=== PATIENT | female | born 1995 | race Hispanic/Latino ===

== ENCOUNTER 2022-03-13 15:39 | Observation (INO) | payer BC, SELFPAY ==
--- NOTE | 2022-03-13 15:39 | OBADM ---
This patient, Angela Mcdaniel, admitted to the OB room OB Post 116 for observation. Patient/family oriented to hospital policies and general routines including ID bracelet, bed and alarms, visiting hours, pain management, procedures, bathroom and other care routines, personal items, smoking policy, room service/diet, and visiting hours. Patient/Family are encouraged to report perceived risks to care and to ask questions if they do not understand what they are told or what they should do.
[2022-03-13 15:54] VITALS: BP 109/64; PULSE 105
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
[2022-03-13 17:32] VITALS: BMI 31.7
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
== END 2022-03-13 17:56 | disposition home or self-care (01) ==
PROVIDERS: Admitting Provider Student in an Organized Health Care Education/Training Program; Visit Provider Student in an Organized Health Care Education/Training Program
DX: Z04.3 Encounter for examination and observation following other accident (principal); O26.893 Other specified pregnancy related conditions, third trimester; Z3A.29 29 weeks gestation of pregnancy
CPT/HCPCS: 59025; G0378; G0379

== ENCOUNTER 2022-05-13 21:14 | Observation (INO) | payer BC, SELFPAY ==
[2022-05-13] VITALS (17 sets, daily range): BP systolic 98–130; BP diastolic 47–66; PULSE 126–155; RESP 10–24; TEMP 37.6; O2SAT 97–99
[2022-05-13] MEDS: SODIUM CHLORIDE 0.9% IV 1,000 ML 999 ML IV CONT (22:28)
[2022-05-13 22:53] LABS: Alanine Aminotransferase 15 U/L (6-35); Albumin Level 3.3 g/dL (3.5-5.1); Alkaline Phosphatase 191 U/L (38-126); Anion Gap 9 mmol/L (8-16); Aspartate Amino Transferase 36 U/L (14-36); Bilirubin,Total 0.8 mg/dL (0.2-1.3); Blood Urea Nitrogen 10 mg/dL (7-17); Calcium 8.3 mg/dL (8.4-10.2); Carbon Dioxide 18 mmol/L (22-30); Chloride 105 mmol/L (98-107); Estimated CRCL calculation 138 ml/min; Estimated Glomerular Filt Rate > 60; Glucose 107 mg/dL (65-110); Potassium 3.6 mmol/L (3.4-5.0); Sodium 132 mmol/L (137-145)
[2022-05-13 23:08] LABS: SARS-CoV-2 RNA PCR Positive
[2022-05-14] VITALS (38 sets, daily range): BP systolic 90–110; BP diastolic 46–66; PULSE 76–134; RESP 14–25; TEMP 36.4–37.1; O2SAT 97–100; BMI 33.7
[2022-05-14 00:07] LABS: Basophils Absolute Auto 0.1 K/mm3 (0.0-0.1); Basophils Percent Auto 0.5 % (0.2-1.2); Eosinophils Percent Auto 0.2 % (0-4.4); Hematocrit 21.9 % (37.0-47.0); Immature Granulocyte Absolute 0.47 K/mm3 (0.00-0.031); Immature Granulocyte Percent A 4.2 % (0-0.5); Lymphocytes Percent Auto 7.1 % (18.3-44.2); Mean Corpuscular HGB Conc 27.9 g/dl (32-36); Mean Corpuscular Hemoglobin 19.1 pg (26-34); Mean Corpuscular Volume 68.7 fl (80-100); Mean Platelet Volume 9.6 fl (7.4-10.4); Monocytes Absolute Auto 1.4 K/mm3 (0.1-0.6); Monocytes Percent Auto 12.5 % (2.6-8.5); Neutrophils Absolute Auto 8.5 K/mm3 (1.3-6.7); Neutrophils Percent Auto 75.5 % (45.5-73.1); Nucleated Red Blood Cells Absolute Auto 0.5 K/mm3 (0.0-0.012); Platelet Count Result 221 k/mm3 (150-375); Red Blood Count 3.19 M/mm3 (4.2-5.4); Red Cell Distribution Width 20.9 % (11.5-14.5); White Blood Count 11.2 K/mm3 (4.5-10.0)
[2022-05-14 00:11] LABS: Hemoglobin 6.1 g/dL (12.0-15.0)
[2022-05-14 00:12] LABS: Platelet Estimate Adequate (Adequate)
[2022-05-14 00:13] LABS: Hypochromasia 2+ (NORMAL); Microcytosis 2+ (NORMAL)
[2022-05-14 00:14] LABS: Ovalocytes 1+ (NORMAL)
--- NOTE | 2022-05-14 00:32 | ED.FEVER ---
HPI - Fever General Chief Complaint: Fever Stated Complaint: fever 104, 38 weeks Time Seen by Provider: 05/13/22 22:06 History of Present Illness HPI Narrative: Patient is a 27-year-old female who presents ER with fever. Patient reports her daughter was sick recently with some diarrhea. Patient developed fever yesterday and took a home COVID test that was negative. Patient is currently [address] Orlando Ritter. She is feeling baby move. She is eating and drinking without issue. She has some mild runny nose but no sore throat or productive cough. No dyspnea. No chest pain or chest pressure. No abdominal discomfort. She is without diarrhea. No leakage of fluid from the vagina or vaginal bleeding. Related Data Allergies Allergy/AdvReac Type Severity Reaction Status Date / Time No Known Allergies Allergy Verified 04/28/22 14:42 Review of Systems Review of Systems: All systems reviewed & are unremarkable except as noted in HPI and below Constitutional: Constitutional: Reports chills, Reports fatigue and Reports fever(s) ENT: Reports nasal congestion and Denies sore throat Cardiovascular: Cardiovascular: Denies chest pain, Reports rapid heart rate and Denies radiating jaw, neck or arm pain Respiratory: Respiratory: Denies cough, Denies dyspnea and Denies wheezing Gastrointestinal: Gastrointestinal: Denies abdominal pain, Denies diarrhea, Denies nausea and Denies vomiting Genitourinary: Genitourinary: Denies abnormal vaginal bleeding, Denies dysuria and Denies flank pain Musculoskeletal: Musculoskeletal: Reports myalgias, Denies arthralgias and Denies joint swelling PMFSH Past Medical History Medical History (Updated 05/14/22 @ 02:56 by Josué Castellanos MD) Iron deficiency anemia Surgical History Surgical History (Updated 05/14/22 @ 02:56 by Josué Castellanos MD) No pertinent past surgical history Family History Family History (Updated 04/28/22 @ 14:43 by Hector Piper RN) Other No pertinent family history Social History Social History Substance use: never Spiritual care concerns: No Exam Narrative: GENERAL: Well-appearing, well-nourished, and in no acute distress. HEAD: Normocephalic, atraumatic. ENT: Mucous membranes moist. NECK: Supple. CHEST: Clear to auscultation. No respiratory distress. HEART: Tachycardic and regular. Normal peripheral pulses. ABDOMEN: Soft, nontender, nondistended. EXTREMITIES: Normal range of motion. No edema. SKIN: Warm, dry, no rash. NEURO: Alert and oriented x3. PSYCH: Normal mood and affect. Course Vital Signs Vital signs: Vital Signs Temperature 99.7 F H 05/13/22 21:39 Pulse Rate 155 H 05/13/22 21:39 Respiratory Rate 18 05/13/22 21:39 Blood Pressure 130/59 L 05/13/22 21:39 Pulse Oximetry 98 05/13/22 21:39 Oxygen Delivery Room Air 05/13/22 21:39 Temperature 99.7 F H 05/13/22 21:39 Pulse Rate 155 H 05/13/22 21:39 Respiratory Rate 18 05/13/22 21:39 Blood Pressure 130/59 L 05/13/22 21:39 Pulse Oximetry 98 05/13/22 21:39 Oxygen Delivery Room Air 05/13/22 21:39 MDM - Fever Lab Data Result diagrams: 05/13/22 23:51 05/13/22 22:24 Labs: Lab Results 05/13/22 05/13/22 05/13/22 Range/Units 22:24 22:24 23:51 WBC 11.2 H (4.5-10.0) K/mm3 RBC 3.19 L (4.2-5.4) M/mm3 Hgb 6.1 L* (12.0-15.0) g/dL Hct 21.9 L (37.0-47.0) % MCV 68.7 L (80-100) fl MCH 19.1 L (26-34) pg MCHC 27.9 L (32-36) g/dl RDW 20.9 H (11.5-14.5) % Plt Count 221 (150-375) k/mm3 MPV 9.6 (7.4-10.4) fl Immature Gran % (Auto) 4.2 H (0-0.5) % Neut % (Auto) 75.5 H (45.5-73.1) % Lymph % (Auto) 7.1 L (18.3-44.2) % [place] % (Auto) 12.5 H (2.6-8.5) % Eos % (Auto) 0.2 (0-4.4) % Baso % (Auto) 0.5 (0.2-1.2) % Lymph # (Auto) 0.80 L (0.9-3.2) K/mm3 [place] # (Auto) 1.4 H (0.1-0.6) K/mm3 Eos # (Auto) 0.
[2022-05-14 01:01] LABS: Appearance Urine Clear (Clear); Bilirubin Urine Negative (Negative); Blood Urine Negative (Negative); Color Urine Yellow (Yellow); Glucose Urine UA Negative (Negative); Ketones Urine Negative (Negative); Leukocyte Esterase Ur Trace LEU/UL (Negative); Nitrate Urine Negative (Negative); Protein Urine Negative (Negative); Urobilinogen Urine 0.2 mg/dL (<2.0)
[2022-05-14 01:04] LABS: Add Urine Microscopic? YES; Mucus Urine Rare /lpf; RBC Urine 0-2 /hpf (0-2); Squamous Epithelial Cell Urine Few /hpf (Few)
--- NOTE | 2022-05-14 04:18 | PC.NURSE ---
This patient, Angela Mcdaniel, was admitted to [facility] Surg Room 300-01. Patient/family oriented to hospital policies and general routines including ID bracelet, bed and alarms, visiting hours, pain management, procedures, bathroom and other care routines, personal items, smoking policy, room service/diet, and visiting hours. Information on how to activate the Rapid Response Team has been discussed. Patient/Family are encouraged to report perceived risks to care and to ask questions if they do not understand what they are told or what they should do.
[2022-05-14] MEDS: SODIUM CHLORIDE 0.9% IV 250 ML 30 ML IV CONT (05:17)
--- NOTE | 2022-05-14 06:24 | PM.IMHP ---
H&P: HPI History of Present Illness Date/Time: 05/14/22 06:24 Chief Complaint: Fever with 38 week Narrative: this is a 27-year-old female at 38 weeks gestation with fever. She is positive for COVID on admission and a noted be markedly anemic at 6.1. She was noted to be anemic at her 28 week visit and was prescribed iron for which she has not taken. She is admitted for observation and transfusion. She will also be prescribed oral viral treatment. Which she will be able to take at home PMFSH Past Medical History Medical History Iron deficiency anemia Surgical History Surgical History No pertinent past surgical history Family History Family History Other No pertinent family history Social History Social History Smoking status: Never smoker Alcohol intake: unknown Substance use: never Substance use type: does not use Spiritual care concerns: No Meds Home Medications and Allergies Home Medications Medication Instructions Recorded Confirmed Type nirmatrelvir 300 mg (150 mg x See Rx Instructions PO .COMPLEX 05/14/22 Rx 2)-ritonavir 100 mg tablet (EUA) #30 tabs (Paxlovid 300 mg () Allergies Allergy/AdvReac Type Severity Reaction Status Date / Time No Known Allergies Allergy Verified 04/28/22 14:42 Vital Signs Vital Signs - 24 hr 05/13/22 21:39 05/13/22 22:07 05/13/22 22:09 Temperature 99.7 F H Pulse Rate 155 H Respiratory Rate 18 Blood Pressure 130/59 L 101/57 L Pulse Oximetry 98 98 99 Oxygen Delivery Room Air 05/13/22 22:15 05/13/22 22:16 05/13/22 22:30 Temperature Pulse Rate 138 H 144 H 145 H Respiratory Rate 13 10 L 20 Blood Pressure 98/55 L Pulse Oximetry 97 99 98 Oxygen Delivery 05/13/22 22:31 05/13/22 22:45 05/13/22 22:46 Temperature Pulse Rate 143 H 130 H 131 H Respiratory Rate 18 20 20 Blood Pressure 104/61 114/66 Pulse Oximetry 98 98 98 Oxygen Delivery 05/13/22 23:00 05/13/22 23:01 05/13/22 23:15 Temperature Pulse Rate 129 H 130 H 126 H Respiratory Rate 19 20 24 H Blood Pressure 107/59 L Pulse Oximetry 99 99 98 Oxygen Delivery 05/13/22 23:16 05/13/22 23:30 05/13/22 23:31 Temperature Pulse Rate 126 H 132 H 128 H Respiratory Rate 16 19 20 Blood Pressure 100/65 98/61 L Pulse Oximetry 99 98 99 Oxygen Delivery 05/13/22 23:45 05/13/22 23:46 05/14/22 00:00 Temperature Pulse Rate 126 H 128 H 134 H Respiratory Rate 21 H 23 H 21 H Blood Pressure 99/47 L Pulse Oximetry 99 99 97 Oxygen Delivery 05/14/22 00:01 05/14/22 00:42 05/14/22 00:45 Temperature Pulse Rate 128 H 129 H 130 H Respiratory Rate 16 20 18 Blood Pressure 98/48 L Pulse Oximetry 99 99 98 Oxygen Delivery 05/14/22 01:00 05/14/22 01:35 05/14/22 01:45 Temperature Pulse Rate 124 H 129 H 132 H Respiratory Rate 17 23 H 25 H Blood Pressure Pulse Oximetry 98 99 99 Oxygen Delivery 05/14/22 02:00 05/14/22 02:15 05/14/22 02:30 Temperature Pulse Rate 129 H 126 H 126 H Respiratory Rate 19 20 18 Blood Pressure Pulse Oximetry 98 98 100 Oxygen Delivery 05/14/22 03:49 05/14/22 04:14 05/14/22 04:00 Temperature 98.7 F 98.6 F Pulse Rate 76 123 H Respiratory Rate 18 16 Blood Pressure 103/57 L 109/57 L 110/60 Pulse Oximetry 98 98 Oxygen Delivery 05/14/22 04:48 05/14/22 05:08 05/14/22 05:22 Temperature 98.6 F 98.1 F Pulse Rate 76 122 H Respiratory Rate 18 16 Blood Pressure 109/57 L 103/52 L Pulse Oximetry 98 100 Oxygen Delivery Room Air 05/14/22 06:08 Temperature 98.0 F Pulse Rate 125 H Respiratory Rate 18 Blood Pressure 97/53 L Pulse Oximetry 97 Oxygen Delivery H&P: Results Labs Labs: Short CBC
--- NOTE | 2022-05-14 08:07 | PC.NURSE ---
This patient, Angela Mcdaniel, was transferred to [OB] on 05/14/22 at 0815. Personal belongings sent with patient. Report given to [adal]. Appropriate documentation sent with patient.
--- NOTE | 2022-05-14 11:23 | PC.NURSE ---
Spoke with Dr. Orlando Ritter about pt 2nd unit of blood is complete. He gave discharge orders. States pt with get a repeat Hemocrat and Hemoglobin Wednesday at her Regularly scheduled appointment. He reports she should fill her prescription written by ER doctor for COVID. He reports if she has any questions or concerns he can come down and talk with her or she can call. Plan of care discussedwith pt. She had no concerns and felt okay to be discharges and would fill prescription, call with a [place] questions, and follow up Wednesday at her appointment.
--- NOTE | 2022-05-14 11:57 | PM.DS ---
DS: Admitting Diagnosis Discharge Date 05/14/22 Admitting Diagnosis Term /COVID positive/anemia DS: Discharge Diagnosis Discharge Diagnosis (1) Term : Code(s): Z34.90 - Encounter for supervision of normal , unspecified, unspecified trimester Status: Acute (2) COVID: Code(s): U07.1 - COVID-19 Status: Acute (3) Anemia: Code(s): D64.9 - Anemia, unspecified Status: Acute DS: Summary Hospital Course Reason for hospitalization: Fever in Hospital Course: This 27-year-old mal tip was admitted at 38 weeks gestation with fever. She was positive for COVID on admission and noted to be anemic at 6.1. She received 2units of blood and was feeling much better. She is discharged home to take Paxil did twice a day for the next 5 years. She has an ultrasound and H&H scheduled for Wednesday. COVID precautions were given. Time Spent with Patient Time attestation: Total time spent providing and/or coordinating discharge services: DS: Data Data Completed and Pending Labs on day of discharge: Labs from last 24 hours 05/14/22 05/14/22 05/13/22 00:43 00:43 23:51 WBC 11.2 H RBC 3.19 L Hgb 6.1 L* Hct 21.9 L MCV 68.7 L MCH 19.1 L MCHC 27.9 L RDW 20.9 H Plt Count 221 MPV 9.6 Immature Gran % (Auto) 4.2 H Neut % (Auto) 75.5 H Lymph % (Auto) 7.1 L [place] % (Auto) 12.5 H Eos % (Auto) 0.2 Baso % (Auto) 0.5 Lymph # (Auto) 0.80 L [place] # (Auto) 1.4 H Eos # (Auto) 0.0 Baso # (Auto) 0.1 Abs Immat Gran (auto) 0.47 H Absolute Neuts (auto) 8.5 H Absolute Nucleated RBC 0.5 H Nucleated RBC % 4.0 H Platelet Estimate Adequate Hypochromasia 2+ Microcytosis 2+ Ovalocytes 1+ Sodium Potassium Chloride Carbon Dioxide Anion Gap BUN Creatinine Estim Creat Clear Calc Estimated GFR Glucose Calcium Total Bilirubin AST ALT Alkaline Phosphatase Total Protein Albumin Urine Color Yellow Urine Appearance Clear Urine pH 6.0 Ur Specific [place] 1.010 Urine Protein Negative Urine Glucose (UA) Negative Urine Ketones Negative Ur Blood (Man) Negative Urine Nitrate Negative Urine Bilirubin Negative Urine Urobilinogen 0.2 Leukocyte Esterase Rfl Trace H Urine RBC 0-2 Urine WBC 4-6 H Ur Squamous Epith Cells Few Urine Mucus Rare SARS-CoV-2 RNA (RT-PCR) Blood Type O Positive Antibody Screen Negative Crossmatch See Detail 05/13/22 05/13/22 22:24 22:24 WBC RBC Hgb Hct MCV MCH MCHC RDW Plt Count MPV Immature Gran % (Auto) Neut % (Auto) Lymph % (Auto) [place] % (Auto) Eos % (Auto) Baso % (Auto) Lymph # (Auto) [place] # (Auto) Eos # (Auto) Baso # (Auto) Abs Immat Gran (auto) Absolute Neuts (auto) Absolute Nucleated RBC Nucleated RBC % Platelet Estimate Hypochromasia Microcytosis Ovalocytes Sodium 132 L Potassium 3.6 Chloride 105 Carbon Dioxide 18 L Anion Gap 9 BUN 10 Creatinine 0.60 L Estim Creat Clear Calc 138 Estimated GFR > 60 Glucose 107 Calcium 8.3 L Total Bilirubin 0.8 AST 36 ALT 15 Alkaline Phosphatase 191 H Total Protein 6.0 L Albumin 3.3 L Urine Color Urine Appearance Urine pH Ur Specific [place] Urine Protein Urine Glucose (UA) Urine Ketones Ur Blood (Man) Urine Nitrate Urine Bilirubin Urine Urobilinogen Leukocyte Esterase Rfl Urine RBC Urine WBC Ur Squamous Epith Cells Urine Mucus SARS-CoV-2 RNA (RT-PCR) Positive A Blood Type Antibody Screen Crossmatch Discharge Plan Discharge Attending physician on discharge: Kenney Barron Discharging Clinician: Kenney Barron Anticipated Discharge Date/Time: 05/14/22 11:35 Patient Disposition: Home, Self-Care Activity: as tolerated Diet:
== END 2022-05-14 11:44 | disposition home or self-care (01) ==
LOC: ANHED 05-14 00:32 → ANH3MEDSUR 05-14 04:07 → ANHOBPP 05-14 08:25
PROVIDERS: Admitting Provider Obstetrics & Gynecology; Emergency Provider Emergency Medicine; PCP Obstetrics & Gynecology; Visit Provider Obstetrics & Gynecology
DX: O98.513 Other viral diseases complicating pregnancy, third trimester (principal); U07.1 COVID-19; O99.013 Anemia complicating pregnancy, third trimester; D64.9 Anemia, unspecified; Z3A.38 38 weeks gestation of pregnancy
CPT/HCPCS: 36415; 36430; 59025; 80053; 81001; 85025; 86850; 86900; 86901; 86920; 96360; 99285; C9803; G0378; J7030; J7050; P9016; U0003; U0005

== ENCOUNTER 2022-05-19 21:45 | Inpatient (IN) | payer BC, SELFPAY ==
[2022-05-19] VITALS (31 sets, daily range): BP systolic 100–138; BP diastolic 55–102; PULSE 28–141; RESP 18; TEMP 36.5–36.6; O2SAT 80–100; BMI 33.3
[2022-05-19] MEDS: LACTATED RINGERS 1,000 ML 999 ML IV CONT (22:05)
[2022-05-19 22:06] LABS: Basophils Percent Auto 0.3 % (0.2-1.2); Eosinophils Absolute Auto 0.1 K/mm3 (0-0.3); Eosinophils Percent Auto 0.5 % (0-4.4); Hematocrit 36.4 % (37.0-47.0); Hemoglobin 10.1 g/dL (12.0-15.0); Immature Granulocyte Absolute 0.08 K/mm3 (0.00-0.031); Immature Granulocyte Percent A 0.7 % (0-0.5); Immature Platelet Fraction Pct 7.7 % (0.9-11.2); Lymphocytes Absolute Auto 4.69 K/mm3 (0.9-3.2); Lymphocytes Percent Auto 40.9 % (18.3-44.2); Mean Corpuscular HGB Conc 27.7 g/dl (32-36); Mean Corpuscular Hemoglobin 20.4 pg (26-34); Mean Corpuscular Volume 73.5 fl (80-100); Monocytes Absolute Auto 0.6 K/mm3 (0.1-0.6); Monocytes Percent Auto 5.1 % (2.6-8.5); Neutrophils Percent Auto 52.5 % (45.5-73.1); Nucleated Red Blood Cells Absolute Auto 0.1 K/mm3 (0.0-0.012); Platelet Count Result 278 k/mm3 (150-375); Red Blood Count 4.95 M/mm3 (4.2-5.4); Red Cell Distribution Width 23.9 % (11.5-14.5); White Blood Count 11.5 K/mm3 (4.5-10.0)
[2022-05-19 22:12] LABS: Anisocytosis 1+ (NORMAL); Hypochromasia 1+ (NORMAL); Microcytosis 1+ (NORMAL); Ovalocytes 1+ (NORMAL); Platelet Estimate Adequate (Adequate)
--- NOTE | 2022-05-19 22:13 | WPDANESEPP ---
Anes - Eval Pre Procedure Procedure: labor epidural Date/Time: 05/19/22 22:13 Pre Op Diagnosis: Labor Patient Data Age: 27 Gender: F Height: Weight: Last Vital Signs Pulse Ox 96 05/19/22 22:09 Allergies Allergy/AdvReac Type Severity Reaction Status Date / Time No Known Allergies Allergy Verified 04/28/22 14:42 Home Medications Medication Instructions Recorded Confirmed Type nirmatrelvir 300 mg (150 mg x See Rx Instructions PO .COMPLEX 05/14/22 Rx 2)-ritonavir 100 mg tablet (EUA) #30 tabs (Paxlovid 300 mg () Laboratory Tests 05/19/22 05/19/22 21:59 21:59 WBC 11.5 K/mm3 H K/mm3 (4.5-10.0) RBC 4.95 M/mm3 M/mm3 (4.2-5.4) Hgb 10.1 g/dL L D g/dL (12.0-15.0) Hct 36.4 % L % (37.0-47.0) MCV 73.5 fl L D fl (80-100) MCH 20.4 pg L D pg (26-34) MCHC 27.7 g/dl L g/dl (32-36) RDW 23.9 % H % (11.5-14.5) Plt Count 278 k/mm3 k/mm3 (150-375) MPV 10.0 fl fl (7.4-10.4) Immature Gran % (Auto) 0.7 % H % (0-0.5) Neut % (Auto) 52.5 % % (45.5-73.1) Lymph % (Auto) 40.9 % % (18.3-44.2) [place] % (Auto) 5.1 % % (2.6-8.5) Eos % (Auto) 0.5 % % (0-4.4) Baso % (Auto) 0.3 % % (0.2-1.2) Lymph # (Auto) 4.69 K/mm3 H K/mm3 (0.9-3.2) [place] # (Auto) 0.6 K/mm3 K/mm3 (0.1-0.6) Eos # (Auto) 0.1 K/mm3 K/mm3 (0-0.3) Baso # (Auto) 0.0 K/mm3 K/mm3 (0.0-0.1) Abs Immat Gran (auto) 0.08 K/mm3 H K/mm3 (0.00-0.031) Absolute Neuts (auto) 6.0 K/mm3 K/mm3 (1.3-6.7) Absolute Nucleated RBC 0.1 K/mm3 H K/mm3 (0.0-0.012) Nucleated RBC % 1.0 % H % (0.0-0.2) Platelet Estimate Adequate (Adequate) % Immature Plt Fraction 7.7 % % (0.9-11.2) Hypochromasia 1+ (NORMAL) Anisocytosis 1+ (NORMAL) Microcytosis 1+ (NORMAL) Ovalocytes 1+ (NORMAL) RPR Pending Patient hx anesthesia problems: none Family hx anesthesia problems: none Results Review: All pre-operative results and documents have been reviewed as part of the pre-operative evaluation. [facility] Past Medical History Medical History Iron deficiency anemia Surgical History Surgical History No pertinent past surgical history Family History Family History Other No pertinent family history Social History Social History Smoking status: Never smoker Alcohol intake: unknown Substance use: never Substance use type: does not use Spiritual care concerns: No Exam Day of Procedure 05/19/22 22:13 Patient weight: obese Heart: regular rate and rhythm Lungs: clear to auscultation Airway: Mallampati scale Neurological: alert and oriented
[2022-05-19] MEDS: OXYTOCIN 30 UNITS/NS 500 ML 30 UNITS/500 ML BAG 999 UNITS IV CONT (23:00)
--- NOTE | 2022-05-19 23:20 | WPDOBADMIT ---
Obstetrics - Admit Note Admission Note: record reviewed. Additions to the history and/or subsequent changes in the physical findings follow. 27 y/o at 39 1/7 weeks whose contractions began at 1830 at home. Cervix was 8 cm dilated at time of admission to hospital. GBS neg. Recent COVID-19 infection. Also recent transfusion for profound anemia, etiology unclear. Now comfortable with epdural. AVSS NST reactive TOCO: contractions every 2-4 min ABD soft, nontender, gravid, vertex EXT nontender Cervix C/+1. AROM with clear fluid. A: IUP at term with labor. P: Begin pushing.
--- NOTE | 2022-05-19 23:22 | PM.OBPRVD ---
OB - Delivery Note Procedure Delivery date: 05/19/22 Procedure: Induction method: None Delivery augmentation: Rupture of Membranes Delivery monitor: External FHT and External Uterine Route of delivery: Laceration Description: Periurethral (right) and Perineal - 2nd Degree Delivery repair: vicryl (3-0) Specimen: Yes (cord blood, placenta) Quantitative Blood Loss (ml): 380 Anesthesia type: Epidural Disposition: PACU Complications: None Narrative: 27 y/o at 39 1/7 weeks gestation who presented to the hospital with contractions. Labor was diagnosed. She received an epidural. Amniotomy was performed with return of clear fluid. Her cervix dilated completely. She pushed with good effort and delivered the 's head to the perineum, followed by the body. The nose and mouth were bulb suctioned. After a delay, the cord was clamped and cut. The was handed off the field. Cord blood was collected. The placenta delivered spontaneously and was grossly normal in appearance. The usual 3 vessel cord was noted. A second degree midline perineal laceration was sustained. This was reapproximated using 3 0 Vicryl in the usual layered fashion. A right-sided periurethral laceration was reapproximated using two figure-of eight sutures of the same material. Excellent hemostasis resulted as did excellent reapproximation of the normal anatomy. Needle and instrument counts were correct. The patient was taken to recovery room in stable condition. The infant went to the nursery in stable condition. I was present and scrubbed for the entire delivery. [place] Baby Date of : 05/19/22 Time of : 22:55 Weeks of gestation at delivery: 39 Infant gender: Male Weight (pounds): 9 Weight (ounces): 5 presentation: vertex position: Right Occiput Anterior Placenta delivery description: Spontaneous and Normal Configuration Cord Vessel Description: 3 Vessels and Delayed Cord Clamping score one minute: 8 score five minutes: 9
--- NOTE | 2022-05-19 23:26 | P.DS_ITS ---
DS: Admitting Diagnosis Discharge Date 05/21/22 Admitting Diagnosis IUP at 39 1/7 weeks Labor DS: Discharge Diagnosis Discharge Diagnosis (1) (normal spontaneous vaginal delivery): Code(s): O80 - Encounter for full-term uncomplicated delivery Status: Acute OB - DS: Summary OB Procedures : None OB Procedures Intrapartum: Spontaneous Vag Delivery OB Procedures: : None Time Spent with Patient Time attestation: Total time spent providing and/or coordinating discharge services: DS: Data Data Completed and Pending Labs on day of discharge: Labs from last 24 hours 05/19/22 05/19/22 05/19/22 21:59 21:59 21:59 WBC 11.5 H RBC 4.95 Hgb 10.1 L D Hct 36.4 L MCV 73.5 L D MCH 20.4 L D MCHC 27.7 L RDW 23.9 H Plt Count 278 MPV 10.0 Immature Gran % (Auto) 0.7 H Neut % (Auto) 52.5 Lymph % (Auto) 40.9 [place] % (Auto) 5.1 Eos % (Auto) 0.5 Baso % (Auto) 0.3 Lymph # (Auto) 4.69 H [place] # (Auto) 0.6 Eos # (Auto) 0.1 Baso # (Auto) 0.0 Abs Immat Gran (auto) 0.08 H Absolute Neuts (auto) 6.0 Absolute Nucleated RBC 0.1 H Nucleated RBC % 1.0 H Platelet Estimate Adequate % Immature Plt Fraction 7.7 Hypochromasia 1+ Anisocytosis 1+ Microcytosis 1+ Ovalocytes 1+ RPR Pending Blood Type O Positive Antibody Screen Negative Discharge Plan Discharge Attending physician on discharge: Kenney Barron Discharging Clinician: Hipolito Rey Patient Disposition: Home, Self-Care Activity: pelvic rest Diet: regular Discharge Instructions: Call or return if temperature above 100.4? F, increased abdominal pain, increased vaginal bleeding or any new problems. Stand Alone Forms: General Discharge Information Follow-up/Referrals: Kenney Barron MD [Primary Care Provider] - 6 Weeks Discharge Medications: New ibuprofen 600 mg tablet 600 mg PO Q6H PRN (Reason: cramps) Qty: 30 0RF ferrous sulfate 325 mg (65 mg iron) tablet 325 mg PO DAILY Qty: 30 0RF Discontinued Paxlovid (EUA) 300 mg (150 mg x 2)-100 mg tablet See Rx Instructions .ROUTE .COMPLEX Qty: 30 0RF Rx Instructions: take TWO 150 mg tablets of nirmatrelvir with ONE 100 mg tablet of ritonavir twice daily for 5 days Date of admission: 05/19/22 21:45 Primary Care Provider: Kenney Barron Admitting Provider: Kenney Barron Attending physician on admission: Kenney Barron Condition: Stable
[2022-05-19] MEDS: OXYTOCIN 30 UNITS/NS 500 ML 30 UNITS/500 ML BAG 125 UNITS IV CONT (23:32)
[2022-05-20] VITALS (11 sets, daily range): BP systolic 107–126; BP diastolic 63–79; PULSE 80–152; RESP 16–18; TEMP 36.6–37.7; O2SAT 99–100
[2022-05-20] MEDS: IBUPROFEN 600 MG TABLET PO ×3 (01:20→16:35)
[2022-05-20] MEDS: WITCH HAZEL 40 PADS 1 PAD TOPICAL (01:20)
[2022-05-20] MEDS: BENZOCAINE 20% AER SPR (*SP) 56 GM CAN 1 SPRAY TOPICAL ×2 (01:20→09:35)
[2022-05-20 05:46] LABS: Hemoglobin 8.3 g/dL (12.0-15.0)
--- NOTE | 2022-05-20 08:56 | WPDANLDPN2 ---
Anes-Prog Note L&D Date/Time: 05/20/22 08:56 Neuro status: Neuro function grossly intact. Vital Signs: Last Vital Signs Temp 36.8 C 05/20/22 07:40 Pulse 86 05/20/22 07:40 Resp 16 05/20/22 07:40 BP 112/67 05/20/22 07:40 Pulse Ox 100 05/20/22 07:40 O2 Del Method Room Air 05/20/22 00:50 Pain score (VAS): 0 Patient feedback: Patient satisfied with anesthetic care.
[2022-05-20 09:22] LABS: Rapid Plasma Reagin Non-Reactive (NonReactive)
[2022-05-20] MEDS: LANOLIN (LANSINOH) 7.5 GM CREAM 1 APPLIC TOPICAL (09:35)
[2022-05-20] MEDS: MULTIVIT/MIN/PREN/FOL AC/IRON TABLET 1 TAB PO (09:35)
[2022-05-20] MEDS: POLYSACCHARIDE IRON COMPLEX 150 MG CAPSULE PO ×2 (09:35→16:35)
[2022-05-20] MEDS: DOCUSATE SODIUM 100 MG CAPSULE PO ×2 (09:36→16:35)
[2022-05-20] MEDS: TETANUS,DIPHTHERIA,AC PERTUSSIS ADULT (0.5 ML) BOOSTRIX IM (09:37)
--- NOTE | 2022-05-20 11:40 | PM.OBPNVD ---
OB - PN: Subj Subjective Date/time seen: 05/20/22 11:40 Narrative: Pain OK. Would like circumcision for son. OB - PN: Obj Data Labs CBC & Chem 7: 05/20/22 05:10 Labs: Laboratory Results - last 24 hr 05/19/22 05/19/22 05/19/22 21:59 21:59 21:59 WBC 11.5 H RBC 4.95 Hgb 10.1 L D Hct 36.4 L MCV 73.5 L D MCH 20.4 L D MCHC 27.7 L RDW 23.9 H Plt Count 278 MPV 10.0 Immature Gran % (Auto) 0.7 H Neut % (Auto) 52.5 Lymph % (Auto) 40.9 [place] % (Auto) 5.1 Eos % (Auto) 0.5 Baso % (Auto) 0.3 Lymph # (Auto) 4.69 H [place] # (Auto) 0.6 Eos # (Auto) 0.1 Baso # (Auto) 0.0 Abs Immat Gran (auto) 0.08 H Absolute Neuts (auto) 6.0 Absolute Nucleated RBC 0.1 H Nucleated RBC % 1.0 H Platelet Estimate Adequate % Immature Plt Fraction 7.7 Hypochromasia 1+ Anisocytosis 1+ Microcytosis 1+ Ovalocytes 1+ RPR Non-reactive Blood Type O Positive Antibody Screen Negative 05/20/22 05:10 WBC RBC Hgb 8.3 L Hct 29.0 L MCV MCH MCHC RDW Plt Count MPV Immature Gran % (Auto) Neut % (Auto) Lymph % (Auto) [place] % (Auto) Eos % (Auto) Baso % (Auto) Lymph # (Auto) [place] # (Auto) Eos # (Auto) Baso # (Auto) Abs Immat Gran (auto) Absolute Neuts (auto) Absolute Nucleated RBC Nucleated RBC % Platelet Estimate % Immature Plt Fraction Hypochromasia Anisocytosis Microcytosis Ovalocytes RPR Blood Type Antibody Screen OB - PN A/P Plan Comments: A: PPD#1, doing well. P: Reviewed circ. Routine care. Exam Psych: Other: AVSS ABD soft, nontender, fundus firm EXT nontender
[2022-05-21] MEDS: IBUPROFEN 600 MG TABLET PO (04:49)
[2022-05-21 08:20] VITALS: BP 126/72; PULSE 85; RESP 18; TEMP 37.2; O2SAT 98
[2022-05-21] MEDS: POLYSACCHARIDE IRON COMPLEX 150 MG CAPSULE PO (10:15)
[2022-05-21] MEDS: MULTIVIT/MIN/PREN/FOL AC/IRON TABLET 1 TAB PO (10:15)
[2022-05-21] MEDS: DOCUSATE SODIUM 100 MG CAPSULE PO (10:15)
--- NOTE | 2022-05-21 11:53 | PM.OBPNVD ---
OB - PN: Subj Subjective Date/time seen: 05/21/22 11:53 Narrative: Pain OK. Would like to go home. OB - PN: Obj Data Labs CBC & Chem 7: 05/20/22 05:10 OB - PN A/P Plan Comments: A: PPD#2, doing well. P: Home to f/u 6 weeks. Exam Psych: Other: AVSS ABD soft, nontender, fundus firm EXT nontender
--- NOTE | 2022-05-21 16:29 | PC.NURSE ---
[id number] Introductions were made and mother led the conversation with her plan to bottle feed and pump when she gets home. Reviewed milk production and follow up resources per mom and baby guide. Reported to AMINATA Wick.
[2022-05-22 10:31] VITALS: BP 119/71; PULSE 97; RESP 18; TEMP 36.9; O2SAT 99
== END 2022-05-21 13:55 | disposition home or self-care (01) | DRG 807 ==
LOC: ANHLDR 23:27 → ANHOB2 05-20 08:37 → ANHLDR 05-22 10:37
PROVIDERS: Admitting Provider Obstetrics & Gynecology; PCP Obstetrics & Gynecology; Visit Provider Obstetrics & Gynecology
DX: O99.02 Anemia complicating childbirth (principal); Z37.0 Single live birth; Z3A.39 39 weeks gestation of pregnancy; D50.9 Iron deficiency anemia, unspecified; O70.1 Second degree perineal laceration during delivery; O71.82 Other specified trauma to perineum and vulva; Z86.16 Personal history of COVID-19
CPT/HCPCS: 36415; 85014; 85018; 85025; 85055; 86592; 86850; 86900; 86901; 88307; 90715; A9270; J2590; J2795; J7120